=== PATIENT | male | born 1975 | race Caucasian/White ===

== ENCOUNTER 2019-07-05 13:35 | Emergency (ER) | payer OTHER ==
[~2019-07-05] VITALS: Ht 185.4 cm; Wt 90.7 kg
[2019-07-05] MEDS ORDERED: AUGMENTIN 875-1 EACH PO (15:14)
== END 2019-07-05 15:41 | disposition home or self-care (01) ==
LOC: ED 13:35
DX: S61.231A Puncture wound without foreign body of left index finger without damage to nail, initial encounter (principal); W22.8XXA Striking against or struck by other objects, initial encounter
CPT/HCPCS: 73140; 96372; 99283-25; J0561